=== PATIENT | male | born 1995 | race Caucasian/White ===

== ENCOUNTER 2017-09-26 09:12 | Emergency (ER) | payer OTHER | END 2017-09-26 10:02 | disposition home or self-care (01) | LOC: FTE 09:12 | DX: S03.42XA Sprain of jaw, left side, initial encounter (principal); H61.22 Impacted cerumen, left ear; X58.XXXA Exposure to other specified factors, initial encounter; Y92.9 Unspecified place or not applicable | CPT/HCPCS: 99283; Z7502 ==

== ENCOUNTER 2017-10-11 09:07 | Emergency (ER) | payer OTHER ==
[2017-10-11] MEDS: IBUPROFEN 600 MG TAB PO (09:45)
== END 2017-10-11 11:02 | disposition home or self-care (01) ==
LOC: FTE 09:07
DX: S99.912A Unspecified injury of left ankle, initial encounter (principal); X58.XXXA Exposure to other specified factors, initial encounter; Y92.9 Unspecified place or not applicable
CPT/HCPCS: 73610; 99283-25

== ENCOUNTER 2018-08-20 13:44 | Emergency (ER) | payer OTHER, MEDICAID | END 2018-08-20 14:34 | disposition home or self-care (01) | LOC: FTE 13:44 | DX: L85.3 Xerosis cutis (principal) | CPT/HCPCS: 99282; Z7502 ==